=== PATIENT | male | born 1985 | race Asian ===

== ENCOUNTER 2025-01-29 10:23 | Outpatient (CLI) | payer BC, SELFPAY | END 2025-01-29 10:24 | disposition home or self-care (01) | PROVIDERS: PCP Family Medicine; Visit Provider Nurse Practitioner Family | DX: R74.8 Abnormal levels of other serum enzymes (principal); R42 Dizziness and giddiness; R41.89 Other symptoms and signs involving cognitive functions and awareness; R20.2 Paresthesia of skin | CPT/HCPCS: 80053; 82607; 84443; 85025 ==

== ENCOUNTER 2025-02-01 10:29 | Outpatient (CLI) | payer BC, SELFPAY ==
--- NOTE | 2025-02-01 10:45 | CRLHL7_ITS ---
For Patients: As a result of the Century Cures Act, medical imaging exams and procedure reports are released immediately into your electronic medical record. You may view this report before your referring provider. If you have questions, please contact your health care provider. INDICATION: Elevated Liver Enzymes COMPARISON: none TECHNIQUE: Real time meeks scale imaging and color Doppler analysis was performed of the right upper quadrant. FINDINGS: Liver is increased in echotexture. Simple cyst within the right hepatic lobe measures 16 x 13 x 11 millimeters. The liver measures 13.3 cm. There is a normal appearance of the hepatic IVC and proximal abdominal aorta. There is no evidence of ascites. The gallbladder is of normal size and there is no evidence of intraluminal stones or sludge. The gallbladder wall measures 2 mm in thickness. The common bile duct is of normal size and measures 5 mm in diameter at the level of the mary hepatis. The pancreas appears hyperechoic. There is no evidence of a stone or hydronephrosis within the right kidney. The right kidney measures 12.1 cm in length. IMPRESSION: Hepatic steatosis. Normal gallbladder. Incidental simple hepatic cyst. Dictated by Neymar Solomon MD @ 02/01/2025 1:58:55 PM (Electronically Signed)
== END 2025-02-01 10:30 | disposition home or self-care (01) ==
LOC: US 10:30
PROVIDERS: PCP Family Medicine; Visit Provider Nurse Practitioner Family
DX: R74.8 Abnormal levels of other serum enzymes (principal); K76.0 Fatty (change of) liver, not elsewhere classified; K76.89 Other specified diseases of liver
CPT/HCPCS: 76705

== ENCOUNTER 2025-03-14 10:26 | Outpatient (CLI) | payer BC, SELFPAY | END 2025-03-14 10:27 | disposition home or self-care (01) | LOC: NFLDREF 03-17 20:21 | PROVIDERS: PCP Family Medicine; Referring Provider Family Medicine; Visit Provider Nurse Practitioner Family | DX: R74.8 Abnormal levels of other serum enzymes (principal); Z13.6 Encounter for screening for cardiovascular disorders | CPT/HCPCS: 80061; 80076; 86706; 86803 ==

== ENCOUNTER 2025-04-16 10:00 | Outpatient (RCR) | payer BC, SELFPAY ==
--- NOTE | 2025-03-09 11:53 | PT.OPEX ---
PT [place] Outpatient Eval PT [facility] Outpatient Eval Start: 03/09/25 07:45 Freq: Status: Active Protocol: Document 03/09/25 07:45 ARMANDO (Rec: 03/09/25 11:52 ARMANDO [id number]) E-signed By Riya Dinh PT Physical Therapy Outpatient Evaluation Insurance Information Insurance Name [employer] Insurance [place] 220G Information/Comments Medical Diagnosis LUMBAR DDD CERVICAL DDD C4-5, C6-7 DIFFUSE BULGES W/IMPINGEMENT OF NERVE ROOT L5-S1 DIFFUSE BULGES W/IMPINGEMENT OF NERVE ROOT Treating Diagnosis CERVICALGIA DORSALGIA CHRONIC PAIN Imaging Report 11/27/24 MRI Information CERVICAL: C4-5, C5-6 DISC SPACES SHOW DIFFUSE BULGES AND CENTRAL PROTRUSIONS CAUSING BILATERAL NEURAL FORAMINAL NARROWING, THECAL SAC INDENTATION CAUSING IMPINGEMENT OF BILATERAL EXITING NERVE ROOTS LUMBAR:L5-S1 DISC SPACE SHOWS DIFFUSE BULGE AND CENTRAL PROTRUSION CAUSING BILATERAL NEURAL FORAMINAL NARROWING, THECAL SAC INDENTATION CAUSING ABUTMENT OF EXITING NERVE ROOTS Referring MD AIDEE LOWE Subjective Subjective PATIENT DESCRIBES A LONG H/O CERVICAL PAIN DATING BACK 1.5-2YRS WHERE, AT TIMES, HE FELT RIGHT UE NUMBNESS AND TINGLING. ADDITIONALLY, HE C/O WEAKNESS AND COLDNESS IN HIS LEGS BUT NO SYMPTOMS THE RESEMBLED HIS UE. HE VIS[place] WHERE HE RECEIVED PHYSICAL THERAPY TO ADDRESS HIS CERVICAL SPINE ISSUES WELL VERTIGO AND BRAIN FOG THAT HAS SINCE RESOLVED WITH RESIDUAL NECK AND BACK STIFFNESS. HE DESCRIBES THE USE OF CERVICAL TRACTION WELL PRONE UPPER TRUNK STRENGTHENING. HE HAD BEEN WORKING AT [employer] PRIOR TO HIS VISIT TO [facility] BUT NO LONGER WORKS THERE D/T THE REPETITIVE LIFTING, CARRYING, ETC. 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 Pain Comments Date of Last 02/05/25 Physician Visit Occupation SELF EMPLOYED Precautions Treatment PMHX: H/O TB 2010, HEPATIC STEATOSIS, H/O VERTIGO/ Precautions/ DIZZINESS/BRAIN FOG, CERVICAL AND LUMBAR DDD, GERD Contraindications Therapy Limitations/ Not Limited Systems Review Objective Functional Test [id number] Performed & Score Assessment Assessment/ PATIENT IS A 39YO [address] AIDEE LOWE TO EVAL Impression AND TREAT CERVICAL DDD, LUMBAR DDD WITH H/O CERVICAL RUE RADICULOPATHY. PATIENT DEMONSTRATES SIGNS AND SYMPTOMS CONSISTENT WITH CERVICAL DDD, LUMBAR DDD CONTRIBUTING TO THEIR FUNCTIONAL IMPAIRMENTS OF DIFFICULTY WITH PROLONGED POSITIONS, DIFFICULTY SITTING AT COMPUTER FOR WORK,. PATIENT DESCRIBES THE FOLLOWING TRIGGERS SITTING WHILE PLAYING HIS GUITAR FOR SHOWS, COMPUTER WORK, AND REPETITIVE MOTIONS LIKING REACHING [place] AND TO THE GROUND WHICH ARE ALLEVIATED BY REST, PO OTC, RECENT TRACTION/DECOMPRESSION OF CERVICAL SPINE. HE RESPONDED WELL TO THE PHYSICAL THERAPY HE RECEIVED IN [place] WHEN VISITING FAMILY WHERE HE RECEIVED CERVICAL TRACTION AND UPPER TRUNK STRENGTHENING BUT HE DID NOT ADDRESS HIS LOWER QUARTER. HE HAD LAB WORK RECENTLY TO RULE OUT ANY THYROID INVOLVEMENT IN REGARD TO HIS REPORTED BRAIN FOG AND VERTIGO THAT HAD EXPERIENCED PREVIOUSLY. OBJECTIVELY, THERE IS SEGMENTAL HYPOMOBILITY NOTED THROUGHOUT THE SPINE BUT MOST PROMINENT ABOUT CERVICAL AND LUMBAR SPINE. HE SITS WITH FWD/ROUNDED SHOULDER POSTURING BUT IS EASILY CORRECTED WITH VC. WE DISCUSSED, AT LENGTH THE NEED FOR BETTER POSTURING HABITS WELL TO CONTINUE WITH A CORE STRENGTHENING PROGRAM TO BETTER MANAGE HIS CERVICAL AND LUMBAR DDD HE AGES. HE REPORTS THAT HIS FATHER HAS THE SAME TYPE OF CHALLENGES THROUGHOUT HIS SPINE. PATIENT IS A GOOD CANDIDATE FOR SKILLED PHYSICAL THERAPY TO ADDRESS AFOREMENTIONED DEFICITS ABOVE IN ORDER TO RETURN TO SUPPORT SPINAL HEALTH IN LIGHT OF HIS DISC DEGENERATION AND GUIDE HIM INTO AN INDEPENDENT PROGRAM FOR HOME AND THE [facility]. INTERVENTION IS NECESSARY BY WAY OF THERAPEUTIC EXERCISE, MANUAL THERAPY, NEUROMUSCULAR RE-EDUCATION, PATIENT EDUCATION, DRY NEEDLING, MODALITIES FOR SYMPTOM MGMT, STABILIZATION/PROPRIOCEPTION PLEASE REFER TO APPROPRIATE SECTION WITHIN THIS EVALUATION FOR COMPLETE LIST OF GOALS AND PLAN OF CARE. DISCHARGE PLAN AND CRITERIA IS FOR PATIENT TO ACHIEVE THE GOALS LISTED BELOW OR UNTIL MAX POTENTIAL MET. PATIENT VERBALIZED UNDERSTANDING AND AGREEABLE TO POC, FREQ, AND GOALS ESTABLISHED. Primary Functional PROLONGED POSITIONS Limitations Plan of Care Rehabilitation Good Potential Physical Therapy STG (4-6 WEEKS): Goals 1. PATIENT WILL REPORT CONTINUED GOOD SYMPTOM MGMT DURING DAILY ACTIVITIES AND WITH DAILY PARTICIPATION WITH HIS HEP 2. PATIENT WILL REPORT THE ABILITY TO STAND >15 MIN TO ENABLE COOKING, GROOMING, AND OTHER IADL'S 3. PATIENT WILL VERBALIZE A GOOD UNDERSTANDING OF BODY MECHANICS DURING HIS DAILY ACTIVITIES ALONG WITH PROPER LIFTING TECHNIQUES FOR GOOD BACK CARE AND WITH SYMPTOM MGMT. LTG (6-10 WEEKS): 1. PATIENT WILL IMPROVE NOT ONLY FLEXIBILITY BUT BOTH CORE STRENGTH AND STABILITY TO IMPROVE POSTURING DURING DAILY ACTIVITIES INCLUDING IADL'S AND PEER/FAMILY CENTERED ACTIVITIES. 2. PATIENT WILL VERBALIZE GOOD UNDERSTANDING OF CORE STABILITY TO MAINTAIN AND FURTHER PROGRESS HIS FUNCTIONAL MOBILITY AND TOLERANCE TO PROLONGED POSITIONING. 3. PATIENT WILL DEMONSTRATE COMPLETE INDEPENDENCE AND THE ABILITY TO PROGRESS HIS HEP FOR MAINTENANCE AND CONTINUED IMPROVEMENT OF HIS CORE / BLE STRENGTH AND STABILITY. Coordination/ Referral Source Communication With Treatment Plan/ Heat,Ice/Cold/Vasopneumatic,Joint Mobilization,Manual Direct Interventions Therapy,Neuromuscular Re-ed,Self-Care/Home Management, Therapeutic Activities,Therapeutic Exercises Frequency/Duration 1-2X/1K Patient Will Be Completion of LTG(s),Independently Progressing Discharged From Therapy Evaluation Billing Untimed Code 40 Treatment Minutes PT Eval No Charge No Complexity High Certification Information Provider Signature Communication Only-No Signature Required Required
== END 2025-05-28 11:23 | disposition home or self-care (01) ==
PROVIDERS: PCP Family Medicine; Visit Provider Family Medicine
DX: M51.369 Other intervertebral disc degeneration, lumbar region without mention of lumbar back pain or lower extremity pain (principal); M50.30 Other cervical disc degeneration, unspecified cervical region; Z51.89 Encounter for other specified aftercare
CPT/HCPCS: 97163; 97530